=== PATIENT | male | born 1975 | race Caucasian/White ===

== ENCOUNTER 2017-02-05 14:45 | Emergency (ER) | payer OTHER ==
--- NOTE | ~2017-02-05 | ER ---
PATIENT'S NAME: CANDIDO SIMONS [facility] AGE: 42 Y [address] ROOM: [place] [address] LOCATION: [facility] ADMIT DATE: 02/05/2017 ER/Outpatient Report DISCHARGE DATE: 02/05/2017 FAMILY PHYSICIAN: PHYSICIAN, NO ATTENDING PHYSICIAN: Felisha Dunn Time of Patient Arrival: 1445 hours. Time of Patient Evaluation: 1525 hours. CHIEF COMPLAINT: Right big toe injury. HISTORY OF PRESENT ILLNESS: This is a 42-year-old male who presents to the ER with a left great toe injury that happened and hurt his toe last night. He states that he was helping put some cabinets and the cabinet door dropped on top of his great toe. He states that he did not injure anything else during this incident. The patient denies any other problems at this time. ALLERGIES: NO KNOWN ALLERGIES. MEDICATIONS: None. PAST MEDICAL HISTORY: Depression and anxiety. PAST SURGICAL HISTORY: Sagittal split osteotomy. SOCIAL HISTORY: He drinks alcohol a couple of times a week. Denies any smoking use. REVIEW OF SYSTEMS: CONSTITUTIONAL: Denies any change in weight or fatigue. MUSCULOSKELETAL: Complaining of left great toe pain. HEMATOLOGIC: No easy bruising or bleeding. SKIN: Has some bruising noted to the toe. PHYSICAL EXAMINATION: VITAL SIGNS: Height 5 feet 10 inches stated, weight 64.1 kg taken, blood pressure is 99/62, pulse 62, respirations 16, temperature 97.9 degrees tympanically, and saturation is 96% on room air. [place] Coma Score is 15. GENERAL: Alert, calm, well-developed, 42-year-old, in no acute distress. PATIENT'S NAME: CANDIDO SIMONS [facility] AGE: 42 Y [address] ROOM: [place], [place] [address] LOCATION: [facility] ADMIT DATE: 02/05/2017 ER/Outpatient Report DISCHARGE DATE: 02/05/2017 FAMILY PHYSICIAN: PHYSICIAN, DAVID ATTENDING PHYSICIAN: Felisha Dunn EXTREMITIES: No clubbing or cyanosis. He does have decreased range of motion of his right hallux secondary to pain. He has tenderness with palpation over the entire aspect of the toe. He does have some ecchymosis noted to the toe and up into the nail bed. There is no subungual hematoma noted. He has good pedal pulse. He has full range of motion in all other limbs. NEUROLOGIC: Cranial nerves 2 through 12 grossly intact. Gait is steady without assistance. LABORATORY DATA: None were done. IMAGING STUDIES: X-rays of the left foot showed no fracture to the left great toe. ASSESSMENT AND PLAN: I did give the patient reassurance. The patient did not wish to have crutches and advised him to wear a supportive shoe. He needs to ice and elevate the toe. Take Tylenol or ibuprofen as needed for pain control. Follow up with his primary care physician if he is not improving. The patient understands and agrees with care. TIESHA CHEN PA-C FOR MD SHANIQUE PIRES/nati /[id number] d: 02/05/172300 t: 02/13/172040, OUTPATIENT REPORT
== END 2017-02-05 16:09 | disposition disaster alternative care site (69) ==
LOC: GACC 14:45
DX: S90.112A Contusion of left great toe without damage to nail, initial encounter (principal); F41.9 Anxiety disorder, unspecified; F32.9 Major depressive disorder, single episode, unspecified; Z79.899 Other long term (current) drug therapy; Z98.890 Other specified postprocedural states; W22.8XXA Striking against or struck by other objects, initial encounter